=== PATIENT | female | born 1960 ===

== ENCOUNTER 2023-06-01 05:55 | Day surgery (SDC) | payer OTHER ==
[~2023-06-01] VITALS: Ht 157.5 cm; Wt 80.7 kg
[~2023-06-01 05:55] MED LIST: AVAPRO300 MG PO; NORVASC10 MG PO; SYNTHROID125 MCG PO; TOPROL XL50 M1 PO
[2023-06-01] MEDS ORDERED: IBU600 MG PO (09:27)
== END 2023-06-01 13:40 | disposition home or self-care (01) ==
LOC: CIR.AMB 05:55
PROVIDERS: ATTEND Obstetrics & Gynecology Gynecology
DX: N95.0 Postmenopausal bleeding (principal); N72 Inflammatory disease of cervix uteri; Z20.822 Contact with and (suspected) exposure to COVID-19; I10 Essential (primary) hypertension; E78.5 Hyperlipidemia, unspecified; E03.9 Hypothyroidism, unspecified